=== PATIENT | male | born 1970 | race Caucasian/White ===

== ENCOUNTER 2017-01-10 15:07 | Emergency (ER) | payer OTHER ==
[~2017-01-10] VITALS: Ht 175.3 cm; Wt 149.1 kg
[~2017-01-10 15:07] MED LIST: ASPIRIN325 MG PO; ATRIPLA1 TAB PO; Aspirin E.C. PO; Atripla PO; BACTRIM,SEPT1 TABLET PO; BUSPAR5 MG PO; CLEOCIN300 MG PO; CYCLOBENZAPRINE10 M1 PO; DIFLUNISAL500 MG PO; FISH OIL 1,2001 EAC1 PO; GABAPENTIN600 MG PO; KEFLEX500 MG PO; MOBIC15 MG PO; NAPROSYN500 MG PO; Neurontin PO; OMEGA 3-6-91200 MG PO; OXYCODONE HCL5 MG PO; PEPCID20 MG PO; PERCOCET 5/31 TABLET PO; PRAVASTATIN SOD20 MG PO; PRINZIDE 20-251 EACH PO; Percocet 5/325,Endoc PO; Pravachol PO; VITAMIN D250000 UNIT PO; Vitamin D, Drisdol PO; XANAX0.5 MG PO; Xanax PO; ZESTORETIC 20-1 EACH PO; ZOLOFT100 MG PO; ZOLOFT50 MG PO; Zantac,Taladine PO; Zestoretic,Prinzide PO; Zoloft PO; oxyCODONE PO
[2017-01-10 16:09] LABS: EOSINOPHIL COUNT 0.1 K/uL (0-0.3); HEMATOCRIT 40.5 % (38.0-50.0); IMMATURE GRANULOCYTE (%) 0.4 % (0.0-0.7); INSTRUMENT ABS NEUTROPHIL CT 4.5 K/uL; MCH 29.8 PG (29.0-34.0); MCHC 33.8 G/DL (30.0-36.0); MEAN PLAT.VOLUME 9.1 uM^3 (9.0-12.4); MONOCYTE (%) 9.2 % (3-12); MONOCYTE COUNT 0.7 K/uL (0-0.8); NEUTROPHIL (%) 62.1 % (45-76); NEUTROPHIL COUNT 4.5 K/uL (1.8-6.4); PLATELET COUNT 243 K/uL (156-360); RBC DIS.WIDTH-CV 13.2 % (11.8-14.6); RBC DIS.WIDTH-SD 42.6 % (39-53); WHITE BLOOD COUNT 7.2 K/uL (4.1-10.2)
[2017-01-10 16:16] LABS: ADD MIUA? NO; BILIRUBIN NEGATIVE; BLOOD NEGATIVE; COLOR STRAW ((YELLOW)); GLUCOSE (STRIP) NEGATIVE; KETONES NEGATIVE; LEUKOCYTES NEGATIVE; NITRITE NEGATIVE; PROTEIN (STRIP) NEGATIVE; SPECIFIC GRAVITY 1.015 (1.000-1.030); UROBILINOGEN 0.2 MG/DL (0.2-1.0)
[2017-01-10 16:17] LABS: CHLORIDE 107 mEq/L (99-109)
[2017-01-10 16:18] LABS: SODIUM 141 mEq/L (136-147)
[2017-01-10 16:20] LABS: GLUCOSE 100 mg/dL (70-99)
[2017-01-10 16:21] LABS: ANION GAP 8 MEQ/L (2-14)
[2017-01-10 16:22] LABS: TOTAL BILIRUBIN 0.2 mg/dL (0.0-1.0)
[2017-01-10 16:23] LABS: ALKALINE PHOSPHATASE 73 IU/L (3-129); GFR ESTIMATE (CALCULATED) > 59 mL/min/
[2017-01-10 16:25] LABS: UREA NITROGEN (BUN) 15 mg/dL (9-23)
[2017-01-10 16:27] LABS: LIPASE 18 U/L (1.0-51.0)
[2017-01-10 19:28] VITALS: BP 132/81
== END 2017-01-10 19:29 | disposition home or self-care (01) ==
LOC: EME 15:07
PROVIDERS: Physician Assistant
DX: K40.90 Unilateral inguinal hernia, without obstruction or gangrene, not specified as recurrent (principal); K21.9 Gastro-esophageal reflux disease without esophagitis; J45.909 Unspecified asthma, uncomplicated; I10 Essential (primary) hypertension; E11.9 Type 2 diabetes mellitus without complications; E78.5 Hyperlipidemia, unspecified; F41.9 Anxiety disorder, unspecified; F32.9 Major depressive disorder, single episode, unspecified; Z79.82 Long term (current) use of aspirin
CPT/HCPCS: 74177; 80053; 81003; 83690; 85025; 99281; 99285; J7030